=== PATIENT | female | born 1995 | race American Indian/Alaskan Native ===

== ENCOUNTER 2019-06-18 16:38 | Emergency (ER) | payer SELFPAY ==
--- NOTE | 2019-06-18 17:02 | Event Note ---
ED Screening Note Date of service: 06/18/19 Time: 17:00 ED Screening Note: 23 y o female presents with vaginL IRRITATION WITH NO VAGINAL D/C PAIN OR DYSURIA SHE DENIES FEVER, PELVIC PAIN OR ABD PAIN This initial assessment/diagnostic orders/clinical plan/treatment(s) is/are subject to change based on patients health status, clinical progression and re- assessment by fellow clinical providers in the ED. Further treatment and workup at subsequent clinical providers discretion. Patient/guardian urged not to elope from the ED as their condition may be serious if not clinically assessed and managed. Initial orders include: [facility] NML
[2019-06-18 17:03] VITALS: BP 122/77
== END 2019-06-18 17:49 | disposition home or self-care (01) ==
LOC: ED 16:38
DX: L98.9 Disorder of the skin and subcutaneous tissue, unspecified (principal); Z53.21 Procedure and treatment not carried out due to patient leaving prior to being seen by health care provider